=== PATIENT | male | born 1970 | race American Indian/Alaskan Native ===

== ENCOUNTER 2019-05-16 17:00 | Emergency (ER) | payer SELFPAY ==
[2019-05-16 17:26] VITALS: BP 151/90
[2019-05-16] MEDS ORDERED: traMADol 50 MG TAB PO ONE (18:45)
--- NOTE | 2019-05-16 18:49 | Emergency Department Report ---
ED Fall HPI - General Chief Complaint: Back Pain/Injury Stated Complaint: RT SHOULDER/BACK FALL YESTERDAY Time Seen by Provider: 05/16/19 17:29 Source: patient, EMS Mode of arrival: Stretcher - History of Present Illness Initial Comments: 49-year-old male, currently inpatient at [facility], presents to the ED for evaluation following a fall. Patient states he slipped on a wet floor yesterday. Denies LOC. Reports bumps to the back of his head, headache, neck pain, right shoulder pain. MD Complaint: fall -: Last night Fall From: standing Loss of Consciousness: none Prolonged Down Time?: no Symptoms Prior to Fall: none Location: head, neck, back Location - Extremities: Right: Shoulder Severity: moderate Quality: aching Context: tripped/slipped Associated Symptoms: headache, neck pain. denies: numbness - Related Data Previous Rx's Medication Instructions Recorded Last Taken Type Naproxen [Naprosyn] 500 mg PO BID #20 tablet 05/16/19 Unknown Rx methOCARBAMOL [Robaxin TAB] 500 mg PO Q8HR PRN #20 tablet 05/16/19 Unknown Rx Allergies Allergy/AdvReac Type Severity Reaction Status Date / Time No Known Allergies Allergy Verified 05/16/19 18:21 ED Review of Systems ROS: Stated complaint: RT SHOULDER/BACK FALL YESTERDAY Other details as noted in HPI Comment: All other systems reviewed and negative Musculoskeletal: as per HPI Neurological: headache. denies: numbness, paresthesias ED Past Medical Hx - Social History Smoking Status: Smoker, Current Status Unknown Substance Use Type: Alcohol - Medications Home Medications: Home Medications Medication Instructions Recorded Confirmed Last Taken Type Naproxen [Naprosyn] 500 mg PO BID #20 tablet 05/16/19 Unknown Rx methOCARBAMOL [Robaxin TAB] 500 mg PO Q8HR PRN #20 tablet 05/16/19 Unknown Rx ED Physical Exam - General Limitations: No Limitations General appearance: alert, in no apparent distress - Head Head exam: Present: other (hematoma to occipital region) - Eye Eye exam: Present: normal appearance, PERRL, EOMI - ENT ENT exam: Present: mucous membranes moist - Neck Neck exam: Present: normal inspection, tenderness - Respiratory Respiratory exam: Present: normal lung sounds bilaterally. Absent: respiratory distress - Cardiovascular Cardiovascular Exam: Present: regular rate, normal rhythm - GI/Abdominal GI/Abdominal exam: Present: soft. Absent: distended, tenderness - Extremities Exam Extremities exam: Present: other (tenderness to right shoulder) - Back Exam Back exam: Present: paraspinal tenderness - Neurological Exam Neurological exam: Present: alert, oriented X3, CN II-XII intact, normal gait. Absent: motor sensory deficit - Psychiatric Psychiatric exam: Present: normal affect, normal mood - Skin Skin exam: Present: warm, dry, intact, normal color ED Course Vital Signs 05/16/19 17:25 Temperature 98.3 F Pulse Rate 67 Respiratory 15 Rate Blood Pressure 151/90 [Left] O2 Sat by Pulse 98 Oximetry - Reevaluation(s) Reevaluation #1: 05/16/19 19:32 Pt became angry and belligerent after tech attempted to take him to CT. Pt stated that he could not lie flat for the CT, even though he was laying on stretcher w/o difficulty. I informed pt that he could get pain meds, however, it would not be immediately b/c his nurse was busy w/ another patient. I sugges kimani that he go for the CT since it would be fairly quick, and upon return to his room, nurse would have his medications. Pt then became loud with me, stating that he cannot go for CT yet. I stated ok and walked out of the room. Pt then called me a bitch as I was leaving, however, I did not address it with him. Pt then called me back to the room and stated that he would go without the medication. When tech arrived the 2nd time, pt told her that he was waiting on his pain meds first. I clarified with pt that he had given the ok for the CT without the pain medication, and he confirmed. So I advised that he go while the tech was at bedside. When pt returned from CT, his behavior escalated and he began cursing and walking around his treatment area. Also referred to his nurse as a bitch. Security currently at bedside. ED Medical Decision Making - Radiology Data Radiology results: report reviewed, image reviewed - Medical Decision Making Pt presents to ED from [place] following fall on yesterday. Reports MILLER, neck pain, right shoulder pain, back pain. CT Head and C-spine negative. Shoulder films negative. Pt ambulatory in ED w/o difficulty. Walking back and forth from room to manager product marketing's desk, standing in doorway and leaning against the wall. Low suspicion for serious back injury. Pt discharged back to facility w/ naprosyn and robaxin. - Differential Diagnosis fracture, sprain, intracranial injury Critical care attestation.: If time is entered above; I have spent that time in minutes in the direct care of this critically ill patient, excluding procedure time. ED Disposition Clinical Impression: Fall, Closed head injury, Contusion of right shoulder, Acute lumbar myofascial strain, Acute cervical myofascial strain Disposition: TO HOME OR SELFCARE Is pt being admited?: No Condition: Stable Instructions: Muscle Strain (ED), Minor Head Injury (ED), Shoulder Sprain (ED) Prescriptions: Naproxen [Naprosyn] 500 mg PO BID #20 tablet methOCARBAMOL [Robaxin TAB] 500 mg PO Q8HR PRN #20 tablet PRN Reason: Muscle Spasm Referrals: PRIMARY CARE, [Primary Care Provider] - 3-5 Days
--- NOTE | 2019-05-16 19:05 | XRay Report ---
RIGHT SHOULDER 3 VIEWS INDICATION: injury. COMPARISON: No relevant prior imaging study available. FINDINGS: No acute, displaced fracture or dislocation is seen. Acromioclavicular degenerative change is noted. IMPRESSION: 1. No acute findings. Signer Name: Alok Pierre MD Signed: 05/16/2019 7:00 PM Workstation Name: [id number]
--- NOTE | 2019-05-16 19:34 | Cat Scan Report ---
CT head/brain wo con INDICATION: Head injury. TECHNIQUE: Routine CT head without contrast. All CT scans at this location are performed using CT dose reduction for ALARA by means of automated exposure control. COMPARISON: None. FINDINGS: BRAIN / INTRACRANIAL CONTENTS: No acute hemorrhage, brain edema, mass effect, or hydrocephalus. Deepthi l coto-white differentiation. No chronic infarct or focal atrophy. Normal brain volume and ventricula r/sulcal size for age. CALVARIUM/SKULL BASE/CRANIOCERVICAL JUNCTION: No evidence of fracture. ORBITS: No significant abnormality of visualized orbits. SINUSES / MASTOIDS: No significant abnormality of visualized sinuses and mastoid air cells. ADDITIONAL FINDINGS: There are chronic appearing bilateral nasal fractures. IMPRESSION: 1. No acute post-traumatic intracranial abnormality. Signer Name: Deon Hwang MD Signed: 05/16/2019 7:29 PM Workstation Name: [id number]
--- NOTE | 2019-05-16 20:40 | Cat Scan Report ---
CT CERVICAL SPINE WITHOUT CONTRAST INDICATION: Injury. TECHNIQUE: Axial CT images of the spine were obtained. Sagittal and coronal reformatted images were produced. Al l CT scans at this location are performed using CT dose reduction for ALARA by means of automated exp osure control. COMPARISON: None available. FINDINGS: ACUTE FRACTURE(S) OR SUBLUXATION: None. SPINAL DEGENERATIVE CHANGES: There is developmental fusion of the C2 and C3 vertebral bodies. There i s mild degenerative disc disease at C3-4 and mild disc height loss and endplate osteophyte formation. PARASPINAL SOFT TISSUES: No soft tissue swelling or other acute abnormalities. ADDITIONAL FINDINGS: No significant additional findings. IMPRESSION: 1. No acute fracture or subluxation in the spine in neutral position. Signer Name: Deon Hwang MD Signed: 05/16/2019 8:36 PM Workstation Name: [id number]
== END 2019-05-16 23:10 | disposition home or self-care (01) ==
LOC: ED 17:00
DX: S16.1XXA Strain of muscle, fascia and tendon at neck level, initial encounter (principal); S39.012A Strain of muscle, fascia and tendon of lower back, initial encounter; S40.011A Contusion of right shoulder, initial encounter; S09.90XA Unspecified injury of head, initial encounter; F17.200 Nicotine dependence, unspecified, uncomplicated; W01.0XXA Fall on same level from slipping, tripping and stumbling without subsequent striking against object, initial encounter; Y93.89 Activity, other specified; Y92.89 Other specified places as the place of occurrence of the external cause; Y99.8 Other external cause status
CPT/HCPCS: 70450; 72125